=== PATIENT | female | born 1960 | race Caucasian/White ===

== ENCOUNTER 2016-09-05 11:00 | Emergency (ER) | payer MEDICAID ==
[~2016-09-05] VITALS: Ht 167.6 cm; Wt 74.0 kg
[~2016-09-05 11:00] MED LIST: CHOLESTEROL MEDS; HTN MEDS; [UNRECOGNIZED DRUG - REMARK]
[2016-09-05 11:25] VITALS: Ht 167.6 cm; Wt 74.0 kg
[2016-09-05] MEDS ORDERED: ASPIRIN 325 MG TAB PO STA (17:14)
[2016-09-05] MEDS ORDERED: SOD CHLORIDE 0.9% 1,000 ML IV STA (17:14)
[2016-09-05] MEDS ORDERED: METF500T4 PO (17:17)
[2016-09-05] MEDS ORDERED: GLIP-95 PO (17:18)
[2016-09-05] MEDS ORDERED: METO-429 PO (17:18)
[2016-09-05] MEDS ORDERED: SIMV20TA PO (17:19)
[2016-09-05] MEDS ORDERED: GABA100C14 PO (17:19)
[2016-09-05 17:49] LABS: ADD SCAN DIFF NO
[2016-09-05 17:50] LABS: BASOPHIL # 0.1 10^3/ul (0.0-0.1); BASOPHILS % 0.7 % (0.0-2.0); EOSINOPHILS # 0.3 10^3/ul (0.0-0.5); EOSINOPHILS % 4.5 % (0.0-7.0); HEMATOCRIT 46.8 % (37.0-47.0); HEMOGLOBIN 14.6 g/dl (12.0-16.0); LYMPHOCYTES # 2.6 10^3/ul (0.8-2.9); LYMPHOCYTES % 35.8 % (15.0-51.0); MEAN CORPUSCULAR HEMOGLOBIN 31.2 pg (29.0-33.0); MEAN CORPUSCULAR HGB CONC 31.2 g/dl (32.0-37.0); MEAN PLATELET VOLUME 10.6 fl (7.4-10.4); MONOCYTE # 0.7 10^3/ul (0.3-0.9); NEUTROPHIL # 3.6 10^3/ul (1.6-7.5); NEUTROPHILS % 49.6 % (39.0-77.0); PLATELET COUNT 291 10^3/UL (140-415); RED BLOOD COUNT 4.68 10^6/ul (4.20-5.40); RED CELL DISTRIBUTION WIDTH 12.4 % (11.5-14.5); WHITE BLOOD COUNT 7.3 10^3/ul (4.8-10.8)
[2016-09-05 18:04] LABS: POTASSIUM 3.8 mmol/L (3.5-5.1)
[2016-09-05 18:06] LABS: CREATININE 1.29 mg/dl (0.44-1.00)
--- NOTE | 2016-09-05 19:23 | RADRPT ---
PROCEDURE: CT brain without contrast CLINICAL INDICATION: Possible stroke TECHNIQUE: A CT of the brain was performed utilizing axial sections from the skull base through th e vertex without contrast. Sagittal and coronal images were also reformatted. The exam CTDIvol = 44. 52 mGy and DLP = 630.20 mGy-cm. COMPARISON: None available FINDINGS: No acute intracranial hemorrhage is identified. There is no mass effect or midline shift. No extra -axial fluid collection is seen. The ventricles and sulci are within normal limits for size and con figuration. The density of the brain is within normal limits. Davies-white differentiation is preser erick. The osseous structures are unremarkable. The mastoid air cells and visualized paranasal sinuses are clear. RPTAT:HJJR IMPRESSION: 1.Unremarkable noncontrast CT of the brain. 2. Results are discussed by telephone with emergency room physician Dr. Barnes at 19:21 Physician Que Date Time Electronically viewed and signed by Physician Que on 09/05/2016 19:22 /
--- NOTE | 2016-09-05 20:21 | RADRPT ---
PROCEDURE: MR Brain without contrast. CLINICAL INDICATION: Suspected stroke. TECHNIQUE: An MRI of the brain was performed without contrast utilizing the following sequences: Sagittal T1 weighted, sagittal FLAIR, axial T1, axial FLAIR, axial T2 weighted, axial diffusion weig hted, axial ADC mapping. Images were reviewed on a PACS workstation. COMPARISON: CT head 09/05/2016 FINDINGS: Diffusion weighted sequences demonstrate no evidence of acute lacunar or lobar infarction. There is no intracranial hemorrhage, extra-axial fluid collection, mass lesion, midline shift or hydrocephal ous. There is mild prominence of the cerebral sulci, lateral and third ventricles. The basal cister ns are patent. There are mild periventricular and subcortical white matter lesions, likely related to chronic microangiopathic changes. Normal flow voids are visible the proximal intracranial arteri es and dural sinuses, indicating patency. The midline structures are intact. The paranasal sinuses, mastoid air cells and middle ear cavities are normally aerated. The orbits, calvarium and extracranial soft tissues are normal in appearance. The cerebellopontine angles are no rmal. No evidence of internal acoustic canal or cerebellopontine angle mass. IMPRESSION: 1. Mild peripheral and central cerebral volume loss, within normal limits for age. 2. Mild periventricular and subcortical white matter lesions, likely related to chronic microangiop athic changes. 3. No acute intracranial abnormality. No intracranial hemorrhage, enhancing mass lesion, infarctio n or hydrocephalous. RPTAT: HGAS .Nadeem Canada MD, Date Time Electronically viewed and signed by .Nadeem Canada MD, on 09/05/2016 20:20 .S/
--- NOTE | 2016-09-05 20:46 | ERD ---
ER Documentation Chief Complaint Date/Time DATE: 09/05/16 TIME: 20:39 Chief Complaint left arm numbness & tingling 0200, left shoulder pain x2mths HPI This a 55-year-old female states she was asleep last night awoke at 1:30 in the morning with left arm tingling she stated took like 10 minutes to shake her arm out for the tingling go away she went back to sleep and woke up again at 7 AM with her left arm slightly tingling. She then went back to bed again and woke up at 9 AM with a very slight subtle tingling sensation in her arm. The patient then got up a breakfast she said her left arm just felt a slight tingle to it but was not weak she had no facial droop no weakness or tingling in the leg or face no speech changes no visual change. She said that the tingling is now gone. She says that she shakes her arm it tends to help get better ROS All systems reviewed and are negative except as per history of present illness. Medications Home Meds Reported Medications Gabapentin* (Gabapentin*) 100 Mg Capsule, 100 MG PO TID, #90 CAP 09/05/16 Simvastatin* (Zocor*) 20 Mg Tablet, 20 MG PO QHS, #30 TAB 09/05/16 Metoprolol Tartrate* (Lopressor*) 50 Mg Tab, 50 MG PO DAILY, #60 TAB 09/05/16 Glipizide* (Glipizide*) 10 Mg Tablet, 10 MG PO AC BREAKFAST DINNER, TAB 09/05/16 Metformin Hcl* (Metformin Hcl*) 500 Mg Tablet, 500 MG PO WITH MEALS, #90 TAB 09/05/16 Discontinued Reported Medications [Cholesterol Meds] No Conflict Check 01/24/11 [Dm Pills] No Conflict Check 01/09/11 [Htn Meds] No Conflict Check 01/09/11 Allergies Allergies: Coded Allergies: No Known Drug Allergies (Verified Allergy, Unknown, 09/05/16) PMhx/Soc History of Surgery: Yes (KNEE SURGERY (1974), urethral stent) Anesthesia Reaction: No Hx Neurological Disorder: No Hx Respiratory Disorders: Yes (ASTHMA) Hx Cardiac Disorders: Yes (HTN, HIGH CHOLESTEROL) Hx Psychiatric Problems: No Hx Miscellaneous Medical Probl: Yes (kidney stones ) Hx Alcohol Use: Yes (TWO TO THREE DRINKS A DAY states "rarely") Hx Substance Use: No Hx Tobacco Use: Yes (10 TO 15 CIGARETTES A DAY) Smoking Status: Current every day smoker FmHx Family History: No coronary disease Physical Exam Vitals Vital Signs Date Time Temp Pulse Resp B/P Pulse Ox O2 Delivery O2 Flow Rate FiO2 09/05/16 18:30 98.1 93 20 140/95 99 Room Air 09/05/16 16:43 88 18 123/101 99 Room Air 09/05/16 11:25 98.7 103 20 162/107 100 Physical Exam Const: Well-developed, well-nourished Head: Atraumatic, normocephalic Eyes: Normal Conjunctiva, PERRLA, EOMI, normal sclera, no nystagmus ENT: Normal External Ears, Nose and Mouth, moist mucus membranes. Neck: Full range of motion. No meningismus, no lymphadenopathy. Resp: Clear to auscultation bilaterally, no wheezing, rhonchi, rales Cardio: Regular rate and rhythm, no murmurs, S1 S2 present Abd: Soft, non tender x 4, non distended. Normal bowel sounds, no guarding or rebound, no pulsitile abdominal masses or bruits Skin: No petechiae or rashes, no ecchymosis , no maculopapular rash Back: No midline or flank tenderness Ext: No cyanosis, or edema, FROM x 4, normal inspection, neurovascularly intact x 4 Neur: Awake and alert, STR 5/5 x 4, sensation intact x 4, no focal findings, cerebellum intact Psych: Normal Mood and Affect Result Diagram: 09/05/16 1730 09/05/16 1730 Results 24 hrs Laboratory Tests Test 09/05/16 17:30 White Blood Count 7.310^3/ul Red Blood Count 4.6810^6/ul Hemoglobin 14.6g/dl Hematocrit 46.8% Mean Corpuscular Volume 100.0fl Mean Corpuscular Hemoglobin 31.2pg Mean Corpuscular Hemoglobin Concent 31.2g/dl Red Cell Distribution Width 12.4% Platelet Count 09331^3/UL Mean Platelet Volume 10.6fl Neutrophils % 49.6% Lymphocytes % 35.8% Monocytes % 9.0% Eosinophils % 4.5% Basophils % 0.7% Nucleated Red Blood Cells % 0.0/100WBC Neutrophils # 3.610^3/ul Lymphocytes # 2.610^3/ul Monocytes # 0.710^3/ul Eosinophils # 0.310^3/ul Basophils # 0.110^3/ul Nucleated Red Blood Cells # 0.010^3/ul Sodium Level 138mmol/L Potassium Level 3.8mmol/L Chloride Level 99mmol/L Carbon Dioxide Level 28mmol/L Anion Gap 15 Blood Urea Nitrogen 27mg/dl Creatinine 1.29mg/dl Glucose Level 314mg/dl Calcium Level 9.0mg/dl Current Medications Medications (Trade) Dose Ordered Sig/Markie Route PRN Reason Start Time Stop Time Status Last Admin Dose Admin Sodium Chloride (NS) 1,000 ml @ 1,000 mls/hr Q1H STAT IV 09/05/16 17:14 09/05/16 18:13 DC 09/05/16 17:37 Aspirin (Aspirin) 325 mg ONCE STAT PO 09/05/16 17:14 09/05/16 17:17 DC 09/05/16 17:37 Procedures/MDM PROCEDURE: CT brain without contrast CLINICAL INDICATION: Possible stroke TECHNIQUE: A CT of the brain was performed utilizing axial sections from the skull base through the vertex without contrast. Sagittal and coronal images were also reformatted. The exam CTDIvol = 44.52 mGy and DLP = 630.20 mGy-cm. COMPARISON: None available FINDINGS: No acute intracranial hemorrhage is identified. There is no mass effect or midline shift. No extra-axial fluid collection is seen. The ventricles and sulci are within normal limits for size and configuration. The density of the brain is within normal limits. Davies-white differentiation is preserved. The osseous structures are unremarkable. The mastoid air cells and visualized paranasal sinuses are clear. RPTAT:HJJR IMPRESSION: 1.Unremarkable noncontrast CT of the brain. 2. Results are discussed by telephone with emergency room physician Dr. Melchor at 19:21 Physician Que Date Time Electronically viewed and signed by Physician Que on 09/05/2016 19:22 JR/ CC: LAMAR MELCHOR DO PROCEDURE: MR Brain without contrast. CLINICAL INDICATION: Suspected stroke. TECHNIQUE: An MRI of the brain was performed without contrast utilizing the following sequences: Sagittal T1 weighted, sagittal FLAIR, axial T1, axial FLAIR, axial T2 weighted, axial diffusion weighted, axial ADC mapping. Images were reviewed on a PACS workstation. COMPARISON: CT head 09/05/2016 FINDINGS: Diffusion weighted sequences demonstrate no evidence of acute lacunar or lobar infarction. There is no intracranial hemorrhage, extra-axial fluid collection, mass lesion, midline shift or hydrocephalous. There is mild prominence of the cerebral sulci, lateral and third ventricles. The basal cisterns are patent. There are mild periventricular and subcortical white matter lesions, likely related to chronic microangiopathic changes. Normal flow voids are visible the proximal intracranial arteries and dural sinuses, indicating patency. The midline structures are intact. The paranasal sinuses, mastoid air cells and middle ear cavities are normally aerated. The orbits, calvarium and extracranial soft tissues are normal in appearance. The cerebellopontine angles are normal. No evidence of internal acoustic canal or cerebellopontine angle mass. IMPRESSION: 1. Mild peripheral and central cerebral volume loss, within normal limits for age. 2. Mild periventricular and subcortical white matter lesions, likely related to chronic microangiopathic changes. 3. No acute intracranial abnormality. No intracranial hemorrhage, enhancing mass lesion, infarction or hydrocephalous. RPTAT: HGAS .Nadeem Canada MD, MD Date Time Electronically viewed and signed by .Nadeem Canada MD, MD on 09/05/2016 20: 20 .S/ CC: LAMAR MELCHOR DO No evidence of acute stroke. The patient may have some paresthesias from a pinched nerve in her neck. She may also have paresthesias from sleeping on her arm. Her strict warning signs to return if she has more CVA symptoms EKG: Rate/Rhythm: Normal Sinus Rhythm,NL intervals QRS, ST, QT: NORMAL NH, QRS, QT] Impression: NORMAL EKG Departure Diagnosis: Primary Impression: Paresthesia Condition: Stable Patient Instructions: LAMAR Boyce DO Sep 05, 2016 20:46
[2016-09-05 20:58] VITALS: BP 153/91; PULSE 95; RESP 18; TEMP 98
== END 2016-09-05 20:58 | disposition home or self-care (01) ==
LOC: E/R 11:00
DX: R20.2 Paresthesia of skin (principal); I10 Essential (primary) hypertension; J45.909 Unspecified asthma, uncomplicated; F17.210 Nicotine dependence, cigarettes, uncomplicated; E11.9 Type 2 diabetes mellitus without complications; Z79.84 Long term (current) use of oral hypoglycemic drugs
CPT/HCPCS: 36415; 70450; 70551; 80048; 85025; 93005; J7030; Z7502; Z7610